=== PATIENT | male | born 1975 | race Caucasian/White ===

== ENCOUNTER 2018-12-28 17:02 | Emergency (ER) | payer BC ==
[2018-12-28 18:44] LABS: BASOPHIL % 0.3 % (0.0-0.4); Basophil (Absolute #) 0.02 (0-0.4); Eosinophil % 0.3 % (0.00-5.0); Eosinophil (Absolute #) 0.02 (0-0.5); Granulocyte Absolute (ANC) 4.36 (1.4-6.9); Granulocytes % 68.2 % (36.0-66.0); Hematocrit 48.8 % (42-50); Hemoglobin 17.2 gm/dl (12.5-18.0); Lymphocyte (Absolute #) 1.66 (1.0-4.6); Mean Cell Volume 95.1 fl (78-100); Mean Corpuscular Hemoglobin 33.5 pg (26-32); Mean Corpuscular Hgb Concent. 35.2 g/dl (32-36); Mean Platelet Volume 11.1 fl (6-9.5); Monocyte (Absolute #) 0.33 (0.0-1.3); Monocytes % 5.2 % (0.0-12.0); Platelet Count 207 K/mm3 (150-450); Red Blood Count 5.13 M/mm3 (4.1-5.6); Red Cell Distribution Width 13.3 % (11.5-14.0); White Blood Count 6.4 K/mm3 (4.0-10.5)
[2018-12-28 18:47] LABS: Appearance CLEAR (CLEAR); Bilirubin NEGATIVE (NEGATIVE); Blood MODERATE Ery/ul (0-5); Glucose >=500 mg/dL (NEGATIVE); Ketones TRACE (NEGATIVE); Leukocyte Esterase NEGATIVE (NEGATIVE); Mucus SLIGHT /HPF (NEGATIVE); Nitrite NEGATIVE (NEGATIVE); Protein,Urine Dip NEGATIVE (Negative); Specific Gravity 1.025 (1.005-1.025); Urobilinogen NEGATIVE mg/dL (0-1)
[2018-12-28 18:49] LABS: ALBUMIN 4.5 g/dL (3.5-5.0); ALKALINE PHOSPHATASE 143 U/L (38-126); ANION GAP 20.2 MEQ/L (5-15); BLOOD UREA NITROGEN 9 mg/dL (9-20); CHLORIDE 101 mmol/L (98-107); Calcium 9.7 mg/dL (8.4-10.2); Carbon Dioxide 20 mmol/L (22-30); Creatinine 1 0.68 mg/dL (0.66-1.25); Glucose 466 mg/dL (74-106); Potassium 4.4 mmol/L (3.5-5.1); SGOT/AST 24 U/L (17-59); SGPT/ALT 22 U/L (0-50); SODIUM 137 mmol/L (137-145); Total Protein 7.8 g/dL (6.3-8.2)
--- NOTE | 2018-12-28 19:01 | ERPHSYRPT ---
<CORBIN FRANK - Last Filed: 12/28/18 19:28> - History of Present Illness Source: patient Exam Limitations: no limitations Patient Subjective Stated Complaint: pt here a cat bite to left thumb that is infected and he also states hes blood sugar is running high, he is concerned hes kidney's are abcsessing because it is hard for him to void Triage Nursing Assessment: pt alert, resp easy, skin w/d/p, left thumb red and swollen, no drainage, Timing/Duration: week(s) (1) Quality: painful Severity: moderate Location: hands (left) Possible Causes: other (cat bite) Associated Symptoms: malaise (worried high blood sugar) Hx Tetanus, Diphtheria Vaccination/Date Given: No (10 years) Hx Influenza Vaccination/Date Given: No Hx Pneumococcal Vaccination/Date Given: No Immunizations Up to Date: Yes <MAME MCKINNON - Last Filed: 01/02/19 03:19> - History of Present Illness Time Seen by Provider: 12/28/18 18:35 Physician History: cat bite one week ago - web space between L thumb and forefinger swollen and painful. Also thinks has an abscess abdomen. Hisory of an abscess involving kidney function in past. Concerned his blood sugar might be high. (MAME MCKINNON) Allergies/Adverse Reactions: tramadol Allergy (Verified 12/28/18 17:28) Home Medications: Insulin Glargine [Lantus Insulin] 45 units BID 12/28/18 [History] Insulin Lispro [Humalog Kwikpen U-100] 1 unit TID 12/28/18 [History] - Review of Systems Constitutional: Malaise Respiratory: No Symptoms, No Cough, No Dyspnea Musculoskeletal: No Symptoms All Other Systems: Reviewed and Negative <MAME MCKINNON - Last Filed: 01/02/19 03:19> - Past Medical History Pertinent Past Medical History: Yes Neurological History: No Pertinent History Endocrine Medical History: Diabetes Type I Psycho-Social History: Other Other Medical History: PTSD - Past Surgical History Past Surgical History: Yes Other Surgical History: foot surgery - Social History Smoking Status: Current every day smoker Exposure to second hand smoke: Yes Drug Use: none Patient Lives Alone: No <MAME MCKINNON - Last Filed: 01/02/19 03:19> - Physical Exam SpO2: 97 <MAME MCKINNON - Last Filed: 01/02/19 03:19> - Nursing Vital Signs Nursing Vital Signs: Initial Vital Signs Temperature 98.0 F 12/28/18 17:12 Pulse Rate 114 H 12/28/18 17:12 Respiratory Rate 16 12/28/18 17:12 Blood Pressure 133/72 12/28/18 17:12 O2 Sat by Pulse Oximetry 97 12/28/18 17:12 Pain Scale Pain Intensity 2 Ordered Tests: Medication Summary Discontinued Medications Generic Name Dose Route Start Last Admin Trade Name Kasi PRN Reason Stop Dose Admin Hydrocodone Bitart/Acetaminophen 1 tab 12/28/18 19:49 12/28/18 19:54 [place] 10/325 Mg Tablet PO 12/28/18 19:50 1 tab STAT ONE Administration Hydrocodone Bitart/Acetaminophen Confirm 12/28/18 19:53 [place] 10/325 Mg Tablet Administered 12/28/18 19:54 Dose 1 tab .ROUTE .STK-MED ONE Sodium Chloride 1,000 mls @ 999 mls/hr 12/28/18 19:04 12/28/18 20:16 Sodium Chloride 0.9% 1000 Ml IV 12/28/18 20:04 Infused .Q1H1M STA Infusion Sodium Chloride Confirm 12/28/18 19:11 Sodium Chloride 0.9% 1000 Ml Administered 12/28/18 19:12 Dose 1,000 mls @ ud .ROUTE .STK-MED ONE Ampicillin Sodium/Sulbactam Sodium 3 gm in 100 mls @ 200 mls/hr 12/28/18 19: 28 12/28/18 20:14 Unasyn 3gm / Nacl 100ml IV 12/28/18 19:57 200 mls/hr STAT STA Infusion Ampicillin Sodium/Sulbactam Sodium Confirm 12/28/18 19:35 Unasyn 3gm / Nacl 100ml Administered 12/28/18 19:36 Dose 3 gm in 100 mls @ ud .ROUTE .STK-MED ONE Insulin Human Regular 10 unit 12/28/18 19:22 12/28/18 19:39 Novolin R IV 12/28/18 19:23 10 unit STAT ONE Administration Insulin Human Regular Confirm 12/28/18 19:35 Novolin R Administered 12/28/18 19:36 Dose 10 unit .ROUTE .STK-MED ONE Lab/Rad Data: Laboratory Result Diagrams 12/28/18 18:35 12/28/18 18:35 Laboratory Results 12/28/18 12/28/18 12/28/18 Range/Units 18:35 18:35 18:35 WBC 6.4 (4.0-10.5) K/mm3 RBC 5.13 (4.1-5.6) M/mm3 Hgb 17.2 (12.5-18.0) gm/dl Hct 48.8 (42-50) % MCV 95.1 (78-100) fl MCH 33.5 H (26-32) pg MCHC 35.2 (32-36) g/dl RDW 13.3 (11.5-14.0) % Plt Count 207 (150-450) K/mm3 MPV 11.1 H (6-9.5) fl Gran % 68.2 H (36.0-66.0) % Eos # (Auto) 0.02 (0-0.5) Absolute Lymphs (auto) 1.66 (1.0-4.6) Absolute Monos (auto) 0.33 (0.0-1.3) Lymphocytes % 26.0 (24.0-44.0) % Monocytes % 5.2 (0.0-12.0) % Eosinophils % 0.3 (0.00-5.0) % Basophils % 0.3 (0.0-0.4) % Absolute Granulocytes 4.36 (1.4-6.9) Basophils # 0.02 (0-0.4) Sodium 137 (137-145) mmol/L Potassium 4.4 (3.5-5.1) mmol/L Chloride 101 (98-107) mmol/L Carbon Dioxide 20 L (22-30) mmol/L Anion Gap 20.2 H (5-15) MEQ/L BUN 9 (9-20) mg/dL Creatinine 0.68 (0.66-1.25) mg/dL Estimated GFR > 60.0 ML/MIN Glucose 466 H (74-106) mg/dL Calcium 9.7 (8.4-10.2) mg/dL Total Bilirubin 0.50 (0.2-1.3) mg/dL AST 24 (17-59) U/L ALT 22 (0-50) U/L Alkaline Phosphatase 143 H (38-126) U/L Serum Total Protein 7.8 (6.3-8.2) g/dL Albumin 4.5 (3.5-5.0) g/dL Urine Color STRAW (YELLOW) Urine Appearance CLEAR (CLEAR) Urine pH 6.0 (5-6) Ur Specific [place] 1.025 (1.005-1.025) Urine Protein NEGATIVE (Negative) Urine Ketones TRACE (NEGATIVE) Urine Blood MODERATE (0-5) Jason/ul Urine Nitrite NEGATIVE (NEGATIVE) Urine Bilirubin NEGATIVE (NEGATIVE) Urine Urobilinogen NEGATIVE (0-1) mg/dL Ur Leukocyte Esterase NEGATIVE (NEGATIVE) Urine WBC (Auto) NONE (0-5) /HPF Urine RBC (Auto) NONE (0-2) /HPF U Epithel Cells (Auto) NONE (FEW) /HPF Urine Bacteria (Auto) NONE (NEGATIVE) /HPF Urine Mucus (Auto) SLIGHT (NEGATIVE) /HPF Urine Culture Reflexed NO (NO) Urine Glucose >=500 (NEGATIVE) mg/dL - Progress Progress: improved, re-examined Counseled pt/family regarding: lab results, diagnosis, need for follow-up <CORBIN FRANK - Last Filed: 12/28/18 19:28> <MAME MCKINNON - Last Filed: 01/02/19 03:19> - Progress Progress Note: 12/28/18 19:29 took over care of pt at shift change. pt has hyperglycemia and small amt ketones. additionally he had a cat bite to hand. will give 10 u reg insulin iv and one liter ns. will give unasyn 3gm iv now and send pt home rx for augmentin (CROBIN FRANK) - Departure Departure Disposition: Home Critical Care Time: No <CORBIN FRANK - Last Filed: 12/28/18 19:28> <MAME MCKINNON - Last Filed: 01/02/19 03:19> - Departure Clinical Impression: Hyperglycemia Cat bite of hand Qualifiers: Encounter type: subsequent encounter Laterality: left Qualified Code(s): S61.452D - Open bite of left hand, subsequent encounter Condition: Stable Referrals: DOCTOR,NO FAMILY [Primary Care Provider] - Instructions: Animal Bites (DC) Additional Instructions: keep cat bite site clean daily with soap and water. follow up with primary doctor for further management of your cat bite and high blood sugar. Prescriptions: Amoxicillin/Potassium Clav [Augmentin 500-125 Tablet] 1 each PO Q8H #21 tablet Addendum entered and electronically signed by CORBIN FRANK MD 12/28/18 19:47: i re examined pt prior to discharge. pts left index finger is tender with movement. there is mild localized redness and swelling. no expressible pus. the bite is a week old but on the hand. pt will return tomorrow for re evaluation.
[2018-12-28] MEDS ORDERED: Sodium Chloride 0.9% 1000 ML 1,000 ML IV STA (19:04)
[2018-12-28] MEDS ORDERED: Sodium Chloride 0.9% 1000 ML 1,000 ML ONE (19:11)
[2018-12-28] MEDS ORDERED: NovoLIN R IV ONE (19:22)
[2018-12-28] MEDS ORDERED: Unasyn 3GM / NaCl 100ML 3 GM/100 ML IVPB IV STA (19:28)
[2018-12-28] MEDS ORDERED: NovoLIN R ONE (19:35)
[2018-12-28] MEDS ORDERED: Unasyn 3GM / NaCl 100ML 3 GM/100 ML IVPB ONE (19:35)
[2018-12-28] MEDS ORDERED: Norco 10/325 MG Tablet PO ONE (19:49)
[2018-12-28] MEDS ORDERED: Norco 10/325 MG Tablet ONE (19:53)
[2018-12-28 19:56] VITALS: PULSE 112
[2018-12-28 20:25] VITALS: BP 120/75
[2019-01-02 03:20] VITALS: O2SAT 97
== END 2018-12-28 20:25 | disposition home or self-care (01) ==
LOC: ED 17:02
DX: E10.65 Type 1 diabetes mellitus with hyperglycemia (principal); S61.452D Open bite of left hand, subsequent encounter; W55.01XA Bitten by cat, initial encounter
CPT/HCPCS: 36000; 36415; 80053; 81001; 82962; 85025; 96360; 96365; 96374; 99284; J0295; A9270-GY

== ENCOUNTER 2018-12-29 10:48 | Emergency (ER) | payer BC ==
--- NOTE | 2018-12-29 11:01 | ERPHSYRPT ---
- History of Present Illness Time Seen by Provider: 12/29/18 10:50 Source: patient Exam Limitations: no limitations Physician History: patient was bitten by a house pet, and a cat, one week ago at the dorsum of his left second metacarpal head and proximal phalanx. Patient was seen in the emergency department on 12/28/2018, had IV antibiotics, and sent home with a prescription. Patient comes in for wound check. Patient denies any fevers and any worsening swelling or redness traveling up the arm, but has loss of function in terms of flexion of his MCP and PIP joint on that left hand. Occurred: last week Method of Injury: other (cat bite to left hand) Quality: intermittent, aching, throbbing Severity of Pain-Max: moderate Severity of Pain-Current: mild Extremities Pain Location: hand: left, 2nd finger: left Modifying Factors: Improves With: movement Associated Symptoms: No back pain, No chills, No chest discomfort, No chest pain , No dyspnea, No fever, No jaw pain, No nausea, No neck pain, No short of breath , No vomiting Allergies/Adverse Reactions: tramadol Allergy (Verified 12/28/18 17:28) Home Medications: Insulin Glargine [Lantus Insulin] 45 units BID 12/28/18 [History] Insulin Lispro [Humalog Kwikpen U-100] 1 unit TID 12/28/18 [History] Hx Tetanus, Diphtheria Vaccination/Date Given: No (10 years) Hx Influenza Vaccination/Date Given: No Hx Pneumococcal Vaccination/Date Given: No - Review of Systems Constitutional: No Fever, No Chills Eyes: No Symptoms, No Eye Pain, No Vision Changes Ears, Nose, & Throat: No Symptoms, No Nose Discharge, No Throat Pain, No Throat Swelling, No Hoarse, No Painful Swallowing Respiratory: No Cough, No Dyspnea Cardiac: No Chest Pain, No Edema, No Syncope Abdominal/Gastrointestinal: No Abdominal Pain, No Nausea, No Vomiting, No Diarrhea Genitourinary Symptoms: No Dysuria Musculoskeletal: No Back Pain, No Neck Pain Skin: No Rash Neurological: No Dizziness, No Focal Weakness, No Sensory Changes Psychological: No Symptoms Endocrine: No Symptoms Hematologic/Lymphatic: No Easy Bleeding, No Easy Bruising All Other Systems: Reviewed and Negative - Past Medical History Pertinent Past Medical History: Yes Neurological History: No Pertinent History Endocrine Medical History: Diabetes Type I Psycho-Social History: Other Other Medical History: PTSD - Past Surgical History Past Surgical History: Yes Other Surgical History: foot surgery - Social History Smoking Status: Current every day smoker Exposure to second hand smoke: Yes Drug Use: none Patient Lives Alone: No - Nursing Vital Signs Nursing Vital Signs: Initial Vital Signs Temperature 98 F 12/29/18 10:51 Pulse Rate 107 H 12/29/18 10:51 Respiratory Rate 18 12/29/18 10:51 Blood Pressure 168/101 12/29/18 10:51 O2 Sat by Pulse Oximetry 99 12/29/18 10:51 Pain Scale Pain Intensity 4 - Physical Exam General Appearance: no apparent distress, alert Eyes, Ears, Nose, Throat Exam: pharynx normal, moist mucous membranes Neck Exam: non-tender, supple Cardiovascular/Respiratory Exam: chest non-tender, normal breath sounds, regular rate/rhythm, no respiratory distress Abdominal Exam: non-tender, No guarding Back Exam: normal inspection, No CVA tenderness, No vertebral tenderness Shoulder Exam: normal inspection, non-tender, no evidence of injury, normal ROM Elbow/Forearm Exam: normal inspection, non-tender, no evidence of injury, normal ROM Wrist Exam: normal inspection, non-tender, no evidence of injury, normal ROM Hand Exam: non-tender, limited ROM (at left second MCP and PIP joints), stiffness, No asymmetry, No bone tenderness, No soft tissue tenderness Neuro/Tendon Exam: normal sensation, normal motor functions Mental Status Exam: alert, oriented x 3, cooperative Skin Exam: normal color, warm, dry - Radiology Exams Left Hand X-ray Interpretation: Negative, No Fracture, Other (no bony, soft tissue, or articular abnormalities seen per radiologist's interpretation of the 3 views of the left hand) Ordered Tests: Active Orders 24 hr Category Date Time Status HAND (MINIMUM 3 VIEWS) Stat Exams 12/29/18 11:10 Completed Medication Summary Discontinued Medications Generic Name Dose Route Start Last Admin Trade Name Freq PRN Reason Stop Dose Admin Amoxicillin/Clavulanate Potassium 875 mg 12/29/18 11:20 Augmentin 875-125 Tablet PO 12/29/18 11:21 STAT ONE Diphtheria/Tetanus/Acell Pertussis 0.5 ml 12/29/18 11:36 Adacel Vial IM 12/29/18 11:37 .ONCE ONE - Progress Progress: unchanged Progress Note: 12/29/18 11:25 discussed the case with Dr. Mata, orthopedic hand surgeon in [place], [place]. Dr. Mata will see the patient in followup on 12/30/2018 at the plastic surgery clinic in [facility] at 10:15 AM. Patient is to continue taking his antibiotic and continue taking his medications for his diabetes. Will see patient in: office Counseled pt/family regarding: diagnosis, need for follow-up, rad results - Departure Departure Disposition: Home Clinical Impression: Elevated blood pressure reading without diagnosis of hypertension Cat bite of hand Qualifiers: Encounter type: subsequent encounter Laterality: left Qualified Code(s): S61.452D - Open bite of left hand, subsequent encounter Condition: Good Critical Care Time: No Referrals: DOCTOR,NO FAMILY [Primary Care Provider] - ADAM JUÁREZ [ACTIVE STAFF] - 12/31/18 (Follow-up with Dr Mata, Hand Surgeon, in [place], [place]. Please call to confirm the appointment for , 12/30/2018 at 10:15. Adress: [id number] [place], [place], [address]) Additional Instructions: make certain to followup with Dr. Mata, on 12/30/2018 at 10:15 AM. Return immediately to the emergency department if any worse at any time including fever , worsening pain, worsening swelling and worsening redness. Plan of Treatment: Continue Augmentin as scheduled.
--- NOTE | 2018-12-29 11:19 | XRAY ---
Indication: 2nd metacarpal cat-bite. Pain and swelling. Comparison: None 3 views of the left hand obtained. No bony, articular, or soft tissue abnormalities.
[2018-12-29] MEDS ORDERED: Augmentin 875-125 Tablet PO ONE (11:20)
[2018-12-29] MEDS ORDERED: Adacel Vial IM ONE ×2 (11:36→12:02)
[2018-12-29] MEDS ORDERED: Augmentin 875-125 Tablet ONE (12:01)
[2018-12-29 12:10] VITALS: BP 154/96; PULSE 88; O2SAT 98
== END 2018-12-29 12:10 | disposition home or self-care (01) ==
LOC: ED 10:48
DX: R03.0 Elevated blood-pressure reading, without diagnosis of hypertension (principal); S61.452D Open bite of left hand, subsequent encounter; W55.01XD Bitten by cat, subsequent encounter
CPT/HCPCS: 73130; 90471; 90715; 99284; A9270-GY

== ENCOUNTER 2019-08-11 02:22 | Emergency (ER) | payer BC ==
--- NOTE | 2019-08-11 03:31 | ERPHSYRPT ---
- History of Present Illness Time Seen by Provider: 08/11/19 02:25 Source: patient Exam Limitations: no limitations Patient Subjective Stated Complaint: pt c/o rt middle finger swelling Triage Nursing Assessment: pt c/o swelling to rt middle finger. Finger is red and very edematous at the knuckle area. Pt states, "I have metal in this finger. Pt had xray done about 9-10 days ago at [facility]. Pt was able to bend it this morning but is unable to at this time. Physician History: Patient is a 44-year-old male presents to our ED with pain to his right middle finger. Patient had an x-ray approximately 1 week ago at an outside hospital. Patient was advised that he had metal fragments in his finger. Patient was started on clindamycin. Patient has been taking his clindamycin as recommended. Patient states overnight his finger became extremely swollen and tender. Pain described as an ache that is well localized. No radiation. Pain worse with movement and palpation. Pain improved with rest. Tetanus is up-to- date. Patient denies injury. Patient voices no other complaints at this time. Occurred: just prior to arrival Method of Injury: unknown Quality: constant Severity of Pain-Max: moderate Severity of Pain-Current: moderate Extremities Pain Location: 3rd finger: right Modifying Factors: Improves With: movement, rest Associated Symptoms: none Allergies/Adverse Reactions: tramadol Allergy (Verified 08/11/19 02:40) sweating Home Medications: Insulin Glargine [Lantus Insulin] 55 units BID 12/28/18 [History] Insulin Lispro [Humalog Kwikpen U-100] 1 unit TID 12/28/18 [History] Mirtazapine [Remeron] 15 mg PO DAILY PRN PRN 08/11/19 [History] Venlafaxine HCl [Effexor Xr] 150 mg PO DAILY 08/11/19 [History] clindamycin HCL [Clindamycin HCl] 300 mg PO QID 08/11/19 [History] lamoTRIgine [Lamictal Xr] 50 mg PO DAILY 08/11/19 [History] Hx Tetanus, Diphtheria Vaccination/Date Given: Yes Hx Influenza Vaccination/Date Given: No Hx Pneumococcal Vaccination/Date Given: No Immunizations Up to Date: Yes Travel Risk - International Travel Have you traveled outside of the country in past 3 weeks: No Have you or anyone close to you been diagnosed with or: No Do your reside in a community with a known COVID-19 case?: Yes If Yes where:: [place] - Coronavirus Screening Has patient experienced Coronavirus symptoms: No - Review of Systems Constitutional: No Fever, No Chills Eyes: No Symptoms Ears, Nose, & Throat: No Symptoms Respiratory: No Symptoms, No Cough, No Dyspnea Cardiac: No Symptoms, No Chest Pain, No Edema, No Syncope Abdominal/Gastrointestinal: No Symptoms, No Abdominal Pain, No Nausea, No Vomiting, No Diarrhea Genitourinary Symptoms: No Symptoms, No Dysuria Musculoskeletal: No Symptoms, Other (Pain at right middle finger.), No Back Pain , No Neck Pain Skin: No Symptoms, No Rash Neurological: No Symptoms, No Dizziness, No Focal Weakness, No Sensory Changes Psychological: No Symptoms Endocrine: No Symptoms Hematologic/Lymphatic: No Symptoms Immunological/Allergic: No Symptoms All Other Systems: Reviewed and Negative - Past Medical History Pertinent Past Medical History: Yes Neurological History: No Pertinent History ENT History: No Pertinent History Cardiac History: No Pertinent History Respiratory History: Pneumonia Endocrine Medical History: Diabetes Type II Musculoskeletal History: No Pertinent History GI Medical History: No Pertinent History History: No Pertinent History Psycho-Social History: Other Male Reproductive Disorders: No Pertinent History Other Medical History: PTSD - Past Surgical History Past Surgical History: Yes Neuro Surgical History: No Pertinent History Cardiac: No Pertinent History Respiratory: No Pertinent History Gastrointestinal: No Pertinent History Genitourinary: No Pertinent History Musculoskeletal: No Pertinent History Male Surgical History: No Pertinent History Other Surgical History: foot surgery - Social History Smoking Status: Current every day smoker How long have you smoked: 20 Exposure to second hand smoke: Yes Drug Use: none Patient Lives Alone: No - Nursing Vital Signs Nursing Vital Signs: Initial Vital Signs Temperature 97.8 F 08/11/19 02:28 Pulse Rate 104 H 08/11/19 02:28 Respiratory Rate 17 08/11/19 02:28 Blood Pressure 149/90 08/11/19 02:28 O2 Sat by Pulse Oximetry 98 08/11/19 02:28 Pain Scale Pain Intensity 7 - Physical Exam General Appearance: alert Eyes, Ears, Nose, Throat Exam: moist mucous membranes Neck Exam: non-tender, supple Cardiovascular/Respiratory Exam: chest non-tender, normal breath sounds, regular rate/rhythm, no respiratory distress Abdominal Exam: non-tender, No guarding Back Exam: normal inspection, No vertebral tenderness Shoulder Exam: normal inspection Elbow/Forearm Exam: normal inspection Wrist Exam: normal inspection Hand Exam: normal inspection, limited ROM, soft tissue tenderness (Positive [place] signs. Fingers in a fixed flexed position. Pain with passive extension. Sausage digit , pain along flexor tendon.), stiffness, swelling (No lymphangitis.) Neuro/Tendon Exam: normal sensation, normal motor functions Mental Status Exam: alert, oriented x 3, cooperative Skin Exam: normal color, warm, dry SpO2 Interpretation: normal SpO2: 98 O2 Delivery: Room Air - Course Nursing assessment & vital signs reviewed: Yes - Radiology Exams Hand X-ray Interpretation: Interpreted by me (No fracture or dislocation. No obvious foreign body.) Ordered Tests: Active Orders 24 hr Category Date Time Status Isolation, Initiate & Maintain Q4H Care 08/11/19 02:40 Active HAND (MINIMUM 3 VIEWS) Stat Exams 08/11/19 02:50 Taken - Progress Progress: improved Progress Note: 08/11/19 03:32 Dr. Cartagena orthopedic surgeon at [facility] accepts transfer. Dr. Singleton hospitalist accepts on Dr. Cartagena's behalf. Plan of care discussed with patient. He agrees to transfer to [facility]. Tetanus is up-to-date. Counseled pt/family regarding: diagnosis, rad results - Departure Departure Disposition: Transfer Clinical Impression: Abscess of finger, Flexor tenosynovitis of finger Condition: Stable Critical Care Time: No Referrals: SEAMUS WHITE [Primary Care Provider] -
[2019-08-11] MEDS ORDERED: MORPHINE SULFATE 4 MG INJ IV ONE (03:41)
[2019-08-11] MEDS ORDERED: MORPHINE SULFATE 4 MG INJ ONE (03:53)
[2019-08-11 04:05] VITALS: BP 129/85; PULSE 99; O2SAT 97
--- NOTE | 2019-08-11 09:31 | XRAY ---
Indication: 3rd digit erythema/swelling 2 weeks. Comparison: None 3 views right hand demonstrates proximal 3rd finger soft tissue swelling with 3 mm long soft tissue foreign body adjacent to PIP radial aspect with tiny subcutaneous air are worrisome for gas-forming bacterial infection. Elsewhere old distal 5th metacarpal fracture. Remaining hand unremarkable.
== END 2019-08-11 04:45 | disposition short-term general hospital (02) ==
LOC: ED 02:22
DX: L02.511 Cutaneous abscess of right hand (principal); M65.88 Other synovitis and tenosynovitis, other site; Z79.899 Other long term (current) drug therapy; E11.9 Type 2 diabetes mellitus without complications; Z79.4 Long term (current) use of insulin; F43.10 Post-traumatic stress disorder, unspecified
CPT/HCPCS: 36000; 73130; 96374; 99284; J2270